=== PATIENT | female | born 1945 | race Caucasian/White ===

== ENCOUNTER 2018-03-29 03:16 | Emergency (ER) | payer OTHER ==
--- NOTE | 2018-03-29 03:26 | EDPHY ---
H & P Time Seen by Provider: 03/29/18 03:24 HPI/ROS: 72 yo F presents c/o having crampy stomach pain, queasy all weekend with some diarrhea that began yesterday , and she has noticed blood in the diarrhea, possibly some blood clots. No prior hx of GI bleeding. She believes she may have been told she has diverticuli on colonoscopy. Review of systems As per HPI General no fever no chills no weakness, positive fatigue HEENT no eye pain no eye discharge. No eye redness, no sore throat Respiratory no cough, no shortness of breath Cardiac no chest pain, no peripheral edema GI no abdominal pain, positive diarrhea, no constipation, positive nausea, no vomiting, positive bright red blood per rectum no flank pain, no hematuria, no dysuria Musculoskeletal no myalgias, no joint pain Heme no easy bruising, no easy bleeding Endo no polyuria, no polydipsia Skin no rashes, no pruritus Neuro no syncope, no dizziness, no headaches Psych is no suicidal ideation, no homicidal ideation Source: Patient Exam Limitations: No limitations - Personal History Current Tetanus Diphtheria and Acellular Pertussis (TDAP): Yes - Medical/Surgical History Hx Asthma: No Hx Chronic Respiratory Disease: No Hx Diabetes: Yes Hx Cardiac Disease: Yes Hx Renal Disease: No Hx Cirrhosis: No Hx Alcoholism: No Hx HIV/AIDS: No Hx Splenectomy or Spleen Trauma: No Other PMH: hypertension, hyperlipidemia, hysterectomy, hyppothyroidism - Family History Significant Family History: No pertinent family hx - Social History Smoking Status: Unknown if ever smoked Alcohol Use: None Drug Use: None - Physical Exam Exam: 72 yo F alert and oriented in nad non toxic appearance HEENT atraumatic normocephalic, extraocular muscles intact, anicteric Oropharynx negative for erythema negative exudate, tolerating her own secretions Neck supple no meningismus Lungs clear to auscultation bilaterally Heart regular rate and rhythm without murmur rub or gallop Abdomen nondistended normoactive bowel sounds soft nontender rectal exam -one small flesh colored external hemmrhoid- not actively bleeding positive bloody appearing stool and mucous in rectal vault sent for hemocult check Back no CVA tenderness, no step-offs, no spinal tenderness Extremities no cyanosis clubbing or edema Neuro alert and oriented, no focal deficits Constitutional: Initial Vital Signs Temperature (C) 37.0 C 07/10/18 03:20 Heart Rate 80 03/29/18 03:20 Respiratory Rate 16 03/29/18 03:20 Blood Pressure 187/96 H 03/29/18 03:20 O2 Sat (%) 93 03/29/18 03:20 O2 Delivery Mode Room Air Allergies/Adverse Reactions: meperidine [Meperidine] Allergy (Severe, Verified 03/29/18 03:30) Unknown prochlorperazine edisylate [From Compazine] Allergy (Severe, Verified 03/29/18 03:30) Unknown prochlorperazine maleate [From Compazine] Allergy (Severe, Verified 03/29/18 03: 30) Unknown Home Medications: Medication Instructions Recorded Aleve 03/29/18 Amoxicillin/Clavulanate Pot 875 mg PO BID #20 tab 03/29/18 [Augmentin 875 MG TAB (*)] Atorvastatin Calcium 03/29/18 Biotin 03/29/18 Levothyroxine 03/29/18 Lisinopril 03/29/18 Metoprolol Tartrate 03/29/18 Medical Decision Making ED Course/Re-evaluation: Pt seen adn evaluated for abdominal pain, diarrhea and blood per rectum IV established IV normal saline 1 liter given labs CBC wnl CMP wnl Lactate 1.5 fecal occult blood positive lipase wnl pt/ptt wnl type and screen ct abd and pelvis-mild diverticulitis, diverticulosis hepatic cyst 12 cm pt given a second liter normal saline Imp Diverticulitis Plan Home on Augmentin 875 BID x 10 d f/u with 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 Return as needed Differential Diagnosis: Differential diagnosis considered but not limited to: Infectious diarrhea, rectal bleeding, hemorrhoid, anal fissure, diverticulosis, lower gastrointestinal bleeding, diverticulitis, gastroenteritis - Data Points Medications Given: Discontinued Medications Amoxicillin/Clavulanate Potassium (Augmentin 875mg) 875 mg PO EDNOW ONE PRN Reason: Protocol Stop: 03/29/18 05:32 Last Admin: 03/29/18 05:43 Dose: 875 mg Sodium Chloride (Ns) 1,000 mls @ 0 mls/hr IV ONCE ONE PRN Reason: Wide Open Stop: 03/29/18 03:46 Last Admin: 03/29/18 04:05 Dose: 1,000 mls Sodium Chloride (Ns) 1,000 mls @ 0 mls/hr IV EDNOW ONE; Wide Open PRN Reason: Protocol Stop: 03/29/18 05:13 Last Admin: 03/29/18 05:22 Dose: 1,000 mls Ondansetron HCl (Zofran) 4 mg IVP EDNOW ONE Stop: 03/29/18 03:47 Last Admin: 03/29/18 04:04 Dose: 4 mg Point of Care Test Results: CBC CBC Collection Date 03/29/18 CBC Collection Time 03:55 WBC 6.3 RBC 5.11 HGB 16.1 HCT 48.8 PLT 186 Neut # 4.0 Neut 63.9 LYMPH # 1.7 LYMPH 27.3 Other WBC # 0.6 Other WBC 8.8 MCV 95.5 Chemistry 03/29/18 04:14 POC Sodium 142 mEq/L mEq/L (135-145) POC Potassium 4.1 mEq/L mEq/L (3.3-5.0) POC Chloride 104.0 mEq/L mEq/L (97-110) POC Total CO2 26 mEq/L mEq/L (22-31) POC BUN 13 mg/dL mg/dL (7-23) POC Creatinine 1.2 mg/dL H mg/dL (0.6-1.0) POC Glucose 108 mg/dL H mg/dL (70-100) POC Calcium 9.6 mg/dL mg/dL (8.5-10.4) POC Total Bilirubin 0.7 mg/dL mg/dL (0.1-1.4) POC AST 33 IU/L IU/L (14-46) POC ALT 18 IU/L IU/L (9-52) POC Alk Phosphatase 111 IU/L IU/L (38-126) POC Total Protein 7.0 g/dL g/dL (6.3-8.2) POC Albumin 3.4 g/dL L g/dL (3.5-5.0) Blood Gas/Lactic Acid-Venous 03/29/18 04:15 POC Lactic Acid Hernando 1.5 mmol/L mmol/L (0.7-2.1) Occult Blood Occult Blood Collection Date 03/29/18 Occult Blood Collection Time 03:35 Occult Blood Result Positive/Positive Departure - Departure Disposition: Home, Routine, Self-Care Clinical Impression: Diverticula of colon, Diverticulitis large intestine w/o perforation or abscess w/bleeding Condition: Good Instructions: Diverticulitis (ED), Rectal Bleeding (ED), Diverticulosis (ED) Referrals: Patient,NotPresent [Unknown] - As per Instructions Prescriptions: Amoxicillin/Clavulanate Pot [Augmentin 875 MG TAB (*)] 875 mg PO BID #20 tab
[2018-03-29] MEDS ORDERED: NS 1,000 ML IV ONE ×2 (03:45→05:12)
[2018-03-29] MEDS ORDERED: ONDANSETRON 4 MG/2 ML VIAL IVP ONE (03:46)
[2018-03-29] MEDS ORDERED: IOPAMIDOL (ISOVUE-300) 100 ML BTL ONE (04:42)
[2018-03-29 04:59] LABS: INR 1.01 (0.83-1.16); PROTIME(PATIENT) 13.5 SEC (12.0-15.0)
[2018-03-29] MEDS ORDERED: AMOXICILLIN/CLAVULANATE POT 875/125 MG TAB PO ONE (05:31)
[2018-03-29 06:06] VITALS: BP 172/91
== END 2018-03-29 06:05 | disposition home or self-care (01) ==
LOC: CED 03:16
DX: K57.32 Diverticulitis of large intestine without perforation or abscess without bleeding (principal); I10 Essential (primary) hypertension; E11.9 Type 2 diabetes mellitus without complications; E86.9 Volume depletion, unspecified
CPT/HCPCS: 74177; 96361; 96374; 99285; J2405; Q9967; 80053-PO; 83605-PO

== ENCOUNTER 2018-04-03 06:08 | Emergency (ER) | payer OTHER ==
[2018-04-03] MEDS ORDERED: DIAZEPAM 10 MG/2 ML SYR IVP ONE (06:45)
[2018-04-03] MEDS ORDERED: ONDANSETRON 4 MG/2 ML VIAL IVP ONE (06:45)
--- NOTE | 2018-04-03 06:48 | CPEKG ---
Heart Rate: 86 RR Interval: 698 P-R Interval: 176 QRSD Interval: 98 QT Interval: 364 QTC Interval: 436 P Homer: 40 QRS Homer: -29 T Wave Homer: 81 EKG Severity - ABNORMAL ECG - EKG Impression: SINUS RHYTHM EKG Impression: LVH WITH SECONDARY REPOLARIZATION ABNORMALITY Electronically Signed By: Ynes Pepe 03-Apr-2018 07:15:21
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
[2018-04-03] MEDS ORDERED: ACETAMINOPHEN 500 MG TAB PO ONE (08:00)
[2018-04-03] MEDS ORDERED: LIDOCAINE 4%/MENTHOL 1% PATCH TD ONE (08:01)
[2018-04-03 09:18] VITALS: BP 154/76
[2018-04-03] MEDS ORDERED: PATCH REMOVAL 1 EA PATCH TD SCH (21:00)
== END 2018-04-03 09:16 | disposition home or self-care (01) ==
LOC: CED 06:08
DX: M19.011 Primary osteoarthritis, right shoulder (principal); M62.838 Other muscle spasm; M54.2 Cervicalgia; I10 Essential (primary) hypertension; E11.9 Type 2 diabetes mellitus without complications
CPT/HCPCS: 72125; 73030; 93005; 96374; 96375; 99285; J2270; J2405; J3360

== ENCOUNTER 2018-05-17 02:08 | Observation (INO) | payer OTHER ==
[2018-05-17] MEDS: NS 1,000 ML IV ONE ×3 (02:33→04:23)
[2018-05-17] MEDS ORDERED: ONDANSETRON 4 MG/2 ML VIAL IVP ONE (02:34)
--- NOTE | 2018-05-17 02:46 | EDPHY ---
H & P Stated Complaint: diarrhea and abdominal pain Time Seen by Provider: 05/17/18 02:16 HPI/ROS: CHIEF COMPLAINT: Diarrhea with nausea and vomiting for 30 hrs HISTORY OF PRESENT ILLNESS: Medically stable 72-year-old female with chronic hypertension hypothyroidism. Prior hx of hysterectomy. Has had diverticulitis however. She was exposed to the great granddaughter who was ill last week. Evidently in reach tracing the steps her own daughter was sick yesterday evening as well as the onset of her own symptoms at 10:30 p.m. Yesterday. However, the daughter seems to be doing better than she. Nonetheless she was resting on the couch at around 10:30 a.m.. Had not gone to sleep yet as that is her custom and started with a sense of urgent need for the commode due to diarrhea. She had asleep on the couch due to the proximity to the bathroom as she was going every 15-30 minutes. The diarrhea has been liquid brown without any blood or green or black discoloration. There has also been emesis. The last emesis was just prior to admission however the emesis through the wee hours of the morning last night and ended around 3 or [address] However, though she was able to take fluids the day during the daylight hours, it really made her have a sense of need to have diarrhea so she really did take much fluid intake at all. Of note, she reports that she is still making urine without dysuria, frequency or hematuria. From the very beginning there is also some mild abdominal pain which used chiefly in the suprapubic region. Bilateral lower quadrants. Does not radiate. It is mild. Achy like sensation. She is unable to distinguish if it is similar to what she has had before when she has had diverticulitis. She takes Aleve 3 times weekly for the arthritis pain and has not had it for 2- 3 days. She was too ill through the day on the to take her anti- hypertensive medicines Travel: None Others: Several days ago the 2-1/2-year-old granddaughter was ill with diarrhea. Where as the patient became ill yesterday evening, her daughter became ill yesterday afternoon. The daughter is doing quite a bit better today and isn't as ill as are patient is today. Antibiotics: Augmentin in March for diverticulitis. Bad Food: None Bad Water: None Recent Surgery: None REVIEW OF SYSTEMS: Constitutional: Has felt chilled but did not take her own temp. Feels faint when up, needing someone to hold on to. Eyes: No discharge ENT: No sore throat. Does report thirst. Cardiovascular: No chest pain, no palpitations. Respiratory: No cough, shortness of breath, or wheezing. Gastrointestinal: See above Genitourinary: No hematuria or frequency. Musculoskeletal: There is some pain in the left shoulder blade area, worse with movement. Skin: No rashes. Neurological: No headache. 10 point ROS otherwise negative Source: Patient Exam Limitations: No limitations - Medical/Surgical History Hx Asthma: No Hx Chronic Respiratory Disease: No Hx Diabetes: No Hx Cardiac Disease: Yes Hx Renal Disease: No Hx Cirrhosis: No Hx Alcoholism: No Hx HIV/AIDS: No Hx Splenectomy or Spleen Trauma: No Other PMH: hypertension, hyperlipidemia, hysterectomy, hyppothyroidism, diverticulitis - Social History Smoking Status: Never smoked Alcohol Use: None Drug Use: None - Physical Exam Exam: General Appearance: Alert, no distress. Temp is borderline at 37.4, though feels warm to the touch. Normal phonation. No respiratory distress. Eyes: Pupils equal and round no pallor or injection. No icterus ENT, Mouth: Mucous membranes moderately dry Pharynx without erythema or exudate. TM Clear. Neck: No adenopathy. Supple. No JVD. Trachea in midline. Respiratory: There are no retractions, lungs are clear to auscultation. Chest wall: Nontender to palpation. No crepitus. Cardiovascular: Regular rate and rhythm. Abdomen: Faint BS heard, no distention. Mild upper abdominal tenderness with moderate lower abdominal tenderness in both R and L lower quadrants. Soft and nontender, no masses, bowel sounds normal. Neurological: Ox3. No motor weakness. Sensation intact. Gait nl. Skin: Warm and dry, no rashes. Musculoskeletal: No joint swelling. Warm feet. Extremities: No edema. Homans sign negative. No cords. Psychiatric: Normal affect. Patient is oriented X 3. There is no agitation Constitutional: Initial Vital Signs Temperature (C) 37.4 C 05/17/18 02:15 Heart Rate 104 H 05/17/18 02:15 Respiratory Rate 18 05/17/18 02:15 Blood Pressure 165/91 H 05/17/18 02:15 O2 Sat (%) 94 05/17/18 02:15 O2 Delivery Mode Nasal Cannula O2 (L/minute) 2 Allergies/Adverse Reactions: meperidine [Meperidine] Allergy (Verified 05/17/18 02:14) makes me throw up prochlorperazine edisylate [From Compazine] Allergy (Verified 05/17/18 02:14) with 1st - affected eyelids and muscles prochlorperazine maleate [From Compazine] Allergy (Verified 05/17/18 02:14) with 1st - affected eyelids and muscles Home Medications: Medication Instructions Recorded Atorvastatin Calcium [Lipitor 40 40 mg PO HS 03/29/18 mg (*)] Levothyroxine [Synthroid 50 mcg 50 mcg PO DAILY06 03/29/18 (*)] Lisinopril [Zestril 10 mg (*)] 10 mg PO DAILY 03/29/18 Metoprolol Tartrate [Lopressor 25 25 mg PO BID 03/29/18 mg (*)] Naproxen Sodium [Aleve 220 MG (*)] 220 mg PO BID PRN 03/29/18 Famotidine [Pepcid 20 MG (*)] 20 mg PO BID PRN 05/04/18 Albuterol [Proventil Inhaler HFA 1 - 2 puffs IH DAILY PRN 05/17/18 (*)] Medical Decision Making - Diagnostics EKG Interpretation: EKG interpretation. This is normal sinus rhythm. Heart rate 92. Right bundle branch block. No ischemic changes. Imaging Results: Imaging Impressions Abdomen/Pelvis CT 05/17/18 03:30 Impression: 1. Minimal sigmoid diverticulitis (minimal increased stranding since 6 weeks prior). 2. New gallbladder wall thickening. No cholelithiasis or biliary dilation. The study was performed as an emergency on-call case and discussed by telephone with Dr. Desai at 4:00 a.m. The final interpretation is concordant with the original communication. Attention: This CT examination is specifically designed to evaluate patients who are clinically suspected of having acute obstructive uropathy. This examination does not use radiographic contrast, and as such, provides only a limited evaluation of the abdomen, pelvis and retroperitoneum. If there is further clinical suspicion for pathological conditions other than obstructive uropathy, a complete CT evaluation of the abdomen and pelvis utilizing intravenous, oral, and rectal contrast should be considered. CT scan of Abdomen & Pelvis. Performed [without] IV contrast. Interpreted by radiologist. Films reviewed by me. Findings as follows: Gallbladder wall edema without inflammation nor stone. Some inflammation of the rectosigmoid much as the past CT in March. There is also some mesenteric edema that was not seen in the past. Imaging: Discussed imaging studies w/ call center team leader Radiologist ED Course/Re-evaluation: Concern on on initial analysis was for dehydration, most likely in the setting of a viral enteritis. However she does have abdominal tenderness thus will consider checking liver functions, lipase as well as CT scan of the abdomen. Due to the suprapubic tenderness will need a cath urine for quality of specimen as well as to measure urine output. Given her age and history of events is certainly possible that she is has a very low urine output, thereby guiding fluid therapy. Old charts were reviewed: Her baseline creatinine in December as an outpatient was 0.9. Of note is that it was 1.2 at point of care testing here when she was not seen on March 29 for diverticulitis. That scan scan would done with IV contrast but though given her marked dehydration at this point will go without. Laboratory findings: Urine dip here who flexed market dehydration with 2+ ketones and a specific gravity 1.030. No signs of infectious elements. Lactic acid normal 1.8 Electrolytes normal LFTs normal Troponin normal HGB up 1 gm since 2015 EKG shows right bundle branch Block without ischemia. CT with question of possible diverticulitis After CT: UO over one hour essentially minimal. Espinosa d/c'd as enough info has been gained at this point. No stool as of yet Repeat Abd Exam: Nontender upper abd, mild tender LLQ > RLQ. No R or G. Given extent of dehydration will recommend admission, agrees with need for ambulance transfer. Case discussed with Dr. Carrillo of the [facility] service at [facility] accepting the patient. Findings on CT unclear if from severe viral GE Colitis vs C. Diff vs Diverticulitis acutely. Will not start antibiotics at this point as evaluation is still unclear. Differential Diagnosis: Differential diagnosis includes, but is not limited to: Gastroenteritis, dehydration, diverticulitis, cholecystitis, gastritis, mesenteric adenitis, food poisoning, bacterial dysentery, C. Diff. - Data Points Laboratory Results: Laboratory Results 05/17/18 02:30 Medications Given: Discontinued Medications Enoxaparin Sodium (Lovenox) 40 mg SC DAILY CAROLINE Stop: 11/13/18 08:59 Last Admin: 05/17/18 08:16 Dose: 40 mg Sodium Chloride (Ns) 1,000 mls @ 500 mls/hr IV EDNOW ONE PRN Reason: Protocol Stop: 05/17/18 04:30 Last Admin: 05/17/18 04:23 Dose: 1,000 mls Sodium Chloride (Ns) 1,000 mls @ 500 mls/hr IV EDNOW ONE PRN Reason: Protocol Stop: 05/17/18 06:03 Last Admin: 05/17/18 04:24 Dose: Not Given Sodium Chloride (Ns) 1,000 mls @ 100 mls/hr IV CONT CAROLINE Stop: 11/13/18 06:59 Last Admin: 05/17/18 08:17 Dose: 1,000 mls Ondansetron HCl (Zofran) 4 mg IVP EDNOW ONE Stop: 05/17/18 02:35 Last Admin: 05/17/18 02:48 Dose: 4 mg Point of Care Test Results: Chemistry 05/17/18 05/17/18 02:38 02:38 POC Sodium 140 mEq/L mEq/L (135-145) POC Potassium 3.9 mEq/L mEq/L (3.3-5.0) POC Chloride 105.0 mEq/L mEq/L (97-110) POC Total CO2 21 mEq/L L mEq/L (22-31) POC BUN 12 mg/dL mg/dL (7-23) POC Creatinine 1.1 mg/dL H mg/dL (0.6-1.0) POC Glucose 147 mg/dL H mg/dL (70-100) POC Calcium 9.2 mg/dL mg/dL (8.5-10.4) POC Total Bilirubin 1.0 mg/dL mg/dL (0.1-1.4) POC AST 30 IU/L IU/L (14-46) POC ALT 22 IU/L IU/L (9-52) POC Alk Phosphatase 93 IU/L IU/L (38-126) POC Troponin I 0.00 ng/mL ng/mL (0.00-0.08) POC Total Protein 6.9 g/dL g/dL (6.3-8.2) POC Albumin 3.7 g/dL g/dL (3.5-5.0) Blood Gas/Lactic Acid-Venous 05/17/18 02:56 POC Lactic Acid Hernando 1.8 mmol/L mmol/L (0.7-2.1) Urine Dip Collection Date 05/17/18 Collection Time 03:25 Specific [place] (1.002-1.030) 1.030 PH (5.0-7.5) 5.5 Leukocytes (Negative) Negative Nitrites (Negative) Negative Protein (Negative) 1+ Glucose (Negative) Negative Ketones (Negative) 2+ Urobilnogen (0.2-1.0 EU) 2.0 Bilirubin (Negative) Negative Blood (Negative) Trace Departure - Departure Disposition: [facility] Inpatient Acute Clinical Impression: Gastroenteritis and colitis, viral, Dehydration, severe, Acute kidney injury Condition: Good
[2018-05-17 03:19] LABS: PLATELET COUNT 183 10^3/uL (150-400)
[2018-05-17] MEDS ORDERED: NS 1,000 ML IV ONE (04:04)
--- NOTE | 2018-05-17 05:03 | CPEKG ---
Test Reason : OPEN Blood Pressure : / mmHG Vent. Rate : 092 BPM Atrial Rate : 093 BPM P-R Int : 195 ms QRS Dur : 147 ms QT Int : 388 ms P-R-T Axes : 017 -13 -16 degrees QTc Int : 481 ms Sinus rhythm Right bundle branch block Confirmed by Cristi Desai ([id number]) on 05/17/2018 5:03:07 AM Referred By: Confirmed By:Cristi Desai
[2018-05-17] MEDS ORDERED: ACETAMINOPHEN 325 MG TAB PO PRN (06:34)
[2018-05-17] MEDS ORDERED: ONDANSETRON 4 MG/2 ML VIAL IVP PRN (06:34)
[2018-05-17] MEDS ORDERED: ONDANSETRON DISINTEGRATING 4 MG TAB PO PRN (06:34)
[2018-05-17] MEDS ORDERED: CALCIUM CARBONATE 500 MG CHEWABLE TAB PO PRN (06:46)
[2018-05-17] MEDS ORDERED: PROMETHAZINE HCL 25 MG/ML INJ IVP PRN (06:46)
--- NOTE | 2018-05-17 06:55 | PDGENHP ---
History and Physical - Chief Complaint Vomiting, diarrhea - History of Present Illness 72 yo F w/ hx of HTN and PVCs presents with nausea, vomiting, and diarrhea. Patient has been having these symptoms for about 2 days. Her great granddaughter has had similar symptoms this week. Of note, she had a bout of diverticulitis one month ago treated with 10 days of Augmentin therapy. She denies similar pain currently to the symptoms surrounding that episode. Currently she feels weak and fatigued. Work-up in ED revealed mild BRIAN. She is being admitted for hydration and observation. Case discussed with ED physician Dr. Desai, records reviewed in EMR. History Information - Allergies/Home Medication List Allergies/Adverse Reactions: meperidine [Meperidine] Allergy (Verified 05/17/18 02:14) makes me throw up prochlorperazine edisylate [From Compazine] Allergy (Verified 05/17/18 02:14) with 1st - affected eyelids and muscles prochlorperazine maleate [From Compazine] Allergy (Verified 05/17/18 02:14) with 1st - affected eyelids and muscles Home Medications: Aleve 03/29/18 [Last Taken Unknown] Atorvastatin Calcium 03/29/18 [Last Taken Unknown] Levothyroxine 03/29/18 [Last Taken Unknown] Lisinopril 03/29/18 [Last Taken Unknown] Metoprolol Tartrate 03/29/18 [Last Taken Unknown] Herbals/Supplements -Info Only 05/04/18 [Last Taken Unknown] Pepcid AC 05/04/18 [Last Taken Unknown] I have personally reviewed and updated: family history, medical history - Past Medical History hypertension Additional medical history: Hypothyroid. PVCs - Surgical History Additional surgical history: R TKA. Neck surgery - Family History Positive for: cancer - Social History Smoking Status: Never smoked Alcohol Use: None Drug Use: None Review of Systems Review of Systems: ROS: 10pt was reviewed & negative except for what was stated in HPI & below Physical Exam Physical Exam: Temp Pulse Resp BP Pulse Ox 36.9 C 79 16 161/81 H 98 05/17/18 06:28 05/17/18 06:28 05/17/18 06:28 05/17/18 06:28 05/17/18 06:28 O2 (L/minute) 3 Constitutional: appears nourished, not in pain Eyes: PERRL, EOMI Ears, Nose, Mouth, Throat: moist mucous membranes, no oral mucosal ulcers Cardiovascular: regular rate and rhythym, no murmur, rub, or gallop Respiratory: no respiratory distress, clear to auscultation Gastrointestinal: normoactive bowel sounds, tenderness (LLQ), No guarding, No rebound, No distension Skin: warm, normal color Musculoskeletal: full muscle strength, no muscle tenderness Neurologic: AAOx3, CN II-XII Intact Psychiatric: interacting appropriately, not anxious Lab Data & Imaging Review 05/17/18 02:30 WBC 6.03 10^3/uL (3.80-9.50) 05/17/18 02:30 RBC 5.05 10^6/uL (4.18-5.33) 05/17/18 02:30 Hgb 16.1 g/dL (12.6-16.3) 05/17/18 02:30 Hct 47.4 % (38.0-47.0) H 05/17/18 02:30 MCV 93.9 fL (81.5-99.8) 05/17/18 02:30 MCH 31.9 pg (27.9-34.1) 05/17/18 02:30 MCHC 34.0 g/dL (32.4-36.7) 05/17/18 02:30 RDW 14.0 % (11.5-15.2) 05/17/18 02:30 Plt Count 183 10^3/uL (150-400) 05/17/18 02:30 MPV 9.8 fL (8.7-11.7) 05/17/18 02:30 Neut % (Auto) 80.6 % (39.3-74.2) H 05/17/18 02:30 Lymph % (Auto) 12.8 % (15.0-45.0) L 05/17/18 02:30 Douglas % (Auto) 6.1 % (4.5-13.0) 05/17/18 02:30 Eos % (Auto) 0.0 % (0.6-7.6) L 05/17/18 02:30 Baso % (Auto) 0.2 % (0.3-1.7) L 05/17/18 02:30 Nucleat RBC Rel Count 0.0 % (0.0-0.2) 05/17/18 02:30 Absolute Neuts (auto) 4.86 10^3/uL (1.70-6.50) 05/17/18 02:30 Absolute Lymphs (auto) 0.77 10^3/uL (1.00-3.00) L 05/17/18 02:30 Absolute Monos (auto) 0.37 10^3/uL (0.30-0.80) 05/17/18 02:30 Absolute Eos (auto) 0.00 10^3/uL (0.03-0.40) L 05/17/18 02:30 Absolute Basos (auto) 0.01 10^3/uL (0.02-0.10) L 05/17/18 02:30 Absolute Nucleated RBC 0.00 10^3/uL (0-0.01) 05/17/18 02:30 Immature Gran % 0.3 % (0.0-1.1) 05/17/18 02:30 Immature Gran # 0.02 10^3/uL (0.00-0.10) 05/17/18 02:30 POC Sodium 140 mEq/L (135-145) 05/17/18 02:38 POC Potassium 3.9 mEq/L (3.3-5.0) 05/17/18 02:38 POC Chloride 105.0 mEq/L (97-110) 05/17/18 02:38 POC Total CO2 21 mEq/L (22-31) L 05/17/18 02:38 POC BUN 12 mg/dL (7-23) 05/17/18 02:38 POC Creatinine 1.1 mg/dL (0.6-1.0) H 05/17/18 02:38 POC Glucose 147 mg/dL (70-100) H 05/17/18 02:38 POC Lactic Acid Hernando 1.8 mmol/L (0.7-2.1) 05/17/18 02:56 POC Calcium 9.2 mg/dL (8.5-10.4) 05/17/18 02:38 POC Total Bilirubin 1.0 mg/dL (0.1-1.4) 05/17/18 02:38 POC AST 30 IU/L (14-46) 05/17/18 02:38 POC ALT 22 IU/L (9-52) 05/17/18 02:38 POC Alk Phosphatase 93 IU/L (38-126) 05/17/18 02:38 POC Troponin I 0.00 ng/mL (0.00-0.08) 05/17/18 02:38 POC Total Protein 6.9 g/dL (6.3-8.2) 05/17/18 02:38 POC Albumin 3.7 g/dL (3.5-5.0) 05/17/18 02:38 Lipase 79 IU/L (23-300) 05/17/18 02:30 Imaging Review: prelim CT AP 1. Mild diverticulitis in low sigmoid. Min incr stranding since 6 wks prior. No FF or abscess. 2. New Gallbladder wall thickening/edema. No surrounding stranding d/w Dr Desai at 4:00 am Assessment & Plan Assessment: 72 yo F w HTN presents with likely viral gastroenteritis. Plan: 1. Gastroenteritis - Presenting with 2 days of nausea, vomiting, and diarrhea. She did have course of antibiotics one month ago so C. Diff will need to be rule out. - Clear liquids, ADAT - mIVF, anti-emetics - GI PCR ordered 2. Hx of diverticulitis - CT scan again reveals mild diverticulitis. Patient has normal WBC and denies symptoms. She was treated for a bout of this about 1 month ago with 10 day course of Augmentin. Mild LLQ TTP on exam. - Serial abdominal exams - Observe off of antibiotics for now 3. HTN - Needs med reconciliation, on lisinopril as outpatient 4. Hypothyroid - On LTX 5. PVCs - On metoprolol Diet - Clears, ADAT Code - Full Ppx - LMWH Dispo - Admit under observation status
[2018-05-17] MEDS ORDERED: NS 1,000 ML IV SCH (07:00)
[2018-05-17] MEDS ORDERED: ENOXAPARIN 40 MG/0.4 ML SYR SC SCH (09:00)
[2018-05-17] MEDS ORDERED: FAMOTIDINE 20 MG TAB PO PRN (13:40)
[2018-05-17 14:59] VITALS: BP 147/95
--- NOTE | 2018-05-17 15:17 | ASMTLACE ---
LACE Length of stay for Answers: Less than 1 day current admission Acuity / Level of Answers: No Care: Did the patient have an inpatient admission? Comorbidities - select Answers: Other Notes: HTN; Hypothyroid; PVCs all that apply # of Emergency department Answers: 3-4 visits in the last 6 months Score: 4 Date Signed: 05/17/2018 03:16 PM Electronically Signed By:Sherly Grimes
[2018-05-17] MEDS ORDERED: METOPROLOL TARTRATE 25 MG TAB PO SCH (21:00)
[2018-05-17] MEDS ORDERED: ATORVASTATIN CALCIUM 40 MG TAB PO SCH (21:00)
[2018-05-18] MEDS ORDERED: LEVOTHYROXINE 50 MCG TAB PO SCH (06:00)
== END 2018-05-17 17:16 | disposition home or self-care (01) ==
LOC: CED 02:08 → CEDHOLD 04:32 → F1N 06:26
PROVIDERS: ADMIT Student in an Organized Health Care Education/Training Program; ATTEND Student in an Organized Health Care Education/Training Program
DX: K52.9 Noninfective gastroenteritis and colitis, unspecified (principal); E86.0 Dehydration; K57.32 Diverticulitis of large intestine without perforation or abscess without bleeding; I10 Essential (primary) hypertension; E03.9 Hypothyroidism, unspecified; E78.5 Hyperlipidemia, unspecified; Z90.710 Acquired absence of both cervix and uterus
CPT/HCPCS: 74176; 93005; G0378; J1650; 80053-PO; 83605-PO; 84484-PO

== ENCOUNTER 2018-05-27 05:34 | Observation (INO) | payer OTHER ==
[2018-05-27] MEDS ORDERED: LR 1,000 ML IV ONE (06:06)
[2018-05-27] MEDS ORDERED: MIDAZOLAM 2 MG/2 ML VIAL IVP ONE (06:59)
--- NOTE | 2018-05-27 06:59 | PDANEPAE ---
ANE History of Present Illness here for L ankle fusion ANE Past Medical History - Cardiovascular History Hx Hypertension: Yes Hx Arrhythmias: Yes Hx Chest Pain: No Hx Coronary Artery / Peripheral Vascular Disease: Yes Hx CHF / Valvular Disease: No Hx Palpitations: No Cardiovascular History Comment: hx of tachycardia with failed cardiac ablation 2010. hx of pvc's. hx of palpitations. cad. hyperlipidemia. followed by [facility] - Pulmonary History Hx COPD: No Hx Asthma/Reactive Airway Disease: Yes Hx Recent Upper Respiratory Infection: No Hx Oxygen in Use at Home: No Hx Sleep Apnea: No Sleep Apnea Screening Result - Last Documented: Positive Pulmonary History Comment: bulmaro triggers. hx of asthma- well controlled uses inhaler very seldom - Neurologic History Hx Cerebrovascular Accident: No Hx Seizures: No Hx Dementia: No - Endocrine History Hx Diabetes: No Endocrine History Comment: hypothyroidism. nodules on thyroid- monitoring currently - Renal History Hx Renal Disorders: Yes Renal History Comment: bladder prolapse- pessary in place - Liver History Hx Hepatic Disorders: No - Neurological & Psychiatric Hx Hx Neurological and Psychiatric Disorders: No - Cancer History Hx Cancer: Yes Cancer History Comment: skin ca - Congenital Disorder History Hx Congenital Disorders: No - GI History Hx Gastrointestinal Disorders: Yes Gastrointestinal History Comment: reflux. hx of dysphagia 2014. egd 2 weeks ago. went to ER 03/2018- diarrhea and bleeding, dx'd with diverticulitis and abx - Other Health History Other Health History: wears glasses - Chronic Pain History Chronic Pain: No - Surgical History Prior Surgeries: right TKA 2013. neck fusion. left ankle repair with hardware placed. bilateral RTC repairs. cardiac ablation- unsuccessful ANE Review of Systems Review of systems is: negative Review of Systems: - Exercise capacity Exercise capacity: >=4 METS METS (RN): 4 METS ANE Patient History - Allergies Allergies/Adverse Reactions: meperidine [Meperidine] Allergy (Verified 05/27/18 06:07) makes me throw up prochlorperazine edisylate [From Compazine] Allergy (Verified 05/27/18 06:07) with 1st - affected eyelids and muscles prochlorperazine maleate [From Compazine] Allergy (Verified 05/27/18 06:07) with 1st - affected eyelids and muscles - Home Medications Home medications: home medication list seen and reviewed Home Medications: Atorvastatin Calcium [Lipitor 40 mg (*)] 40 mg PO HS 03/29/18 [Last Taken ] Levothyroxine [Synthroid 50 mcg (*)] 50 mcg PO DAILY06 03/29/18 [Last Taken 03/07] Lisinopril [Zestril 10 mg (*)] 10 mg PO DAILY 03/29/18 [Last Taken 05/26/18] Metoprolol Tartrate [Lopressor 25 mg (*)] 25 mg PO BID 03/29/18 [Last Taken 03/07] Naproxen Sodium [Aleve 220 MG (*)] 220 mg PO BID PRN 03/29/18 [Last Taken ] Famotidine [Pepcid 20 MG (*)] 20 mg PO BID PRN 05/04/18 [Last Taken 05/26/18] Albuterol [Proventil Inhaler HFA (*)] 1 - 2 puffs IH DAILY PRN 05/17/18 [Last Taken 04/27/18] - NPO status NPO Status: no food or drink >8 hours NPO Since - Liquids (Date): 05/26/18 NPO Since - Liquids (Time): 21:00 NPO Since - Solids (Date): 05/26/18 NPO Since - Solids (Time): 17:30 - Smoking Hx Smoking Status: Never smoked - Family Anes Hx Family Hx Anesthesia Complications: none ANE Labs/Vital Signs - Vital Signs Vital Signs: reviewed preoperatively; see RN documention for details Blood Pressure: 152/71 Heart Rate: 72 Respiratory Rate: 16 O2 Sat (%): 93 Height: 160.02 cm Weight: 92.986 kg ANE Physical Exam - Airway Neck exam: FROM Mallampati Score: Class 1 - Pulmonary Pulmonary: no respiratory distress - Cardiovascular Cardiovascular: regular rate and rhythym - ASA Status ASA Status: II ANE Anesthesia Plan Anesthesia Plan: GA w LMA Regional Anesthesia: continuous NB
[2018-05-27] MEDS ORDERED: ceFAZolin 2 GM/DEXTROSE 100 ML IV ONE (07:04)
--- NOTE | 2018-05-27 07:04 | PDHPUP ---
History & Physical Update H&P update statement: This history and physical update is based on an assessment of the patient which was completed after admission or registration (within 24 hours), but prior to the surgery/procedure. H&P update: H&P reviewed & patient examined, no change in patient's condition since H&P completed
[2018-05-27] MEDS ORDERED: MIDAZOLAM 2 MG/2 ML VIAL ONE (07:05)
[2018-05-27] MEDS ORDERED: fentaNYL 100 MCG/2 ML INJ ONE ×2 (07:05→08:35)
[2018-05-27] MEDS ORDERED: CEFAZOLIN 2 GM/DEXTROSE/100 ML BAG IV ONE (07:07)
[2018-05-27] MEDS ORDERED: PROPOFOL 200 MG/20 ML VIAL ONE ×2 (07:38→08:26)
[2018-05-27] MEDS ORDERED: DEXAMETHASONE 4 MG/ML VIAL ONE (07:46)
[2018-05-27] MEDS ORDERED: ONDANSETRON 4 MG/2 ML VIAL ONE (07:46)
[2018-05-27] MEDS ORDERED: NALOXONE HCL 0.4 MG/ML INJ IVP PRN (08:13)
[2018-05-27] MEDS ORDERED: HYDROCODONE/APAP 5/325 TAB PO PRN (08:13)
[2018-05-27] MEDS ORDERED: DEXAMETHASONE 4 MG/ML VIAL IVP PRN (08:13)
[2018-05-27] MEDS ORDERED: fentaNYL 100 MCG/2 ML INJ IVP PRN (08:13)
[2018-05-27] MEDS ORDERED: ONDANSETRON 4 MG/2 ML VIAL IVP PRN ×2 (08:13→09:24)
[2018-05-27] MEDS ORDERED: HYDROmorphONE/DILAUDID 1 MG/ML INJ IVP PRN ×2 (08:13→09:24)
[2018-05-27] MEDS ORDERED: NS 500 ML IV PRN (08:13)
[2018-05-27] MEDS ORDERED: oxyCODONE IR 5 MG TAB PO PRN ×2 (08:13→09:24)
[2018-05-27] MEDS ORDERED: LR 500 ML IV PRN (08:13)
[2018-05-27] MEDS ORDERED: ALBUTEROL 3 ML DEYVIAL IH PRN (08:13)
[2018-05-27] MEDS ORDERED: ACETAMINOPHEN 325 MG TAB PO PRN (09:24)
--- NOTE | 2018-05-27 09:24 | POSTOPPROG ---
Post Op Note Date of Operation: 05/27/18 Surgeon: Tony Kruse Sports Nutritionist: Maggie Anesthesiologist: pio Anesthesia: GET(General Endotracheal) Pre-op Diagnosis: Left ankle djd Post-op Diagnosis: same Indication: above Procedure: L ankle arthroscopic fusion Inf/Abcess present in the surg proc area at time of surgery?: No EBL: Minimal
[2018-05-27] MEDS ORDERED: FAMOTIDINE 20 MG TAB PO PRN (09:27)
[2018-05-27] MEDS ORDERED: NS 1,000 ML IV SCH (09:30)
[2018-05-27] MEDS ORDERED: ROPIVACAINE 0.2% 1,100 MG in PUMP SET 1 EA NB SCH (09:30)
--- NOTE | 2018-05-27 09:50 | GOP ---
DATE OF OPERATION: 05/27/2018 SURGEON: Tony Kruse MD ROOFER APPRENTICE: Amilcar Serrano SA ANESTHESIA: General with indwelling popliteal block and saphenous block. PREOPERATIVE DIAGNOSIS: Left ankle degenerative joint disease. POSTOPERATIVE DIAGNOSIS: Left ankle degenerative joint disease. PROCEDURE PERFORMED: 1. Left ankle arthroscopy with extensive debridement. 2. Left ankle fusion. FINDINGS: SPECIMENS: None. ESTIMATED BLOOD LOSS: 5 mL. INDICATIONS: This is a 72-year-old female with end-stage ankle DJD from prior trauma. I counseled h er on both the risks and benefits of ankle replacement versus ankle fusion. She elected for the ankl e fusion. I discussed doing this arthroscopically if possible, and she elected to proceed. We discu ssed risks of needing to open due to fusion, open nonunion, malunion, malposition, continued pain, ne rve injury, blood clots, heart attack, stroke, and she would like to proceed. Informed consent was o btained. All questions were answered. DESCRIPTION OF PROCEDURE: She was marked preoperatively. She was taken to the operative suite. Blo cks were administered per Anesthesia for anesthesia and postop pain control, a popliteal indwelling a nd saphenous block. The patient was sterilely prepped and draped in the normal fashion. Time-out wa s performed, verifying the site, side, and location, and there was agreement by everyone on the team. The scope was begun by insufflating the joint. I inflated the tourniquet to 250, established a media l portal and lateral working portal. I was able to get distraction and get into her joint. I used a bur to bur down her anterior osteophyte. Her joint was entirely arthritic and completely denuded of articular cartilage. I used an arthroscopic chisel, curette, bur, and K-wire to prepare the joint s urfaces for fusion, getting active bleeding subchondral bone. I left the bone that I had removed in the joint for bone graft. I removed osteophytes in order to obtain deformity correction, as well as took slightly more bone laterally to help deformity correction. I then was able to reduce the joint in appropriate amount of valgus, and neutral dorsiflexion and plantar flexion. The scope was removed . I used 2 percutaneous incisions medially and laterally. I dissected down to the bone and used a g uide. I placed K-wires across the joint. I used the drill and placed a lateral 7.0 Arthrex headless compression screw first to help bring this into more valgus and compression. I then placed a medial screw which was more anterior across this as well. I then did fluoro. The ankle did not move. She had good AP and lateral x-rays, showing good hardware placement and good compression across the join t. I then irrigated and closed the wounds with 2-0 Vicryl, 3-0 Monocryl and Dermabond. She was plac ed in a sterile dressing and splint, and taken to PACU in stable condition. COMPLICATIONS: None. DRAINS: None. CONDITION: Stable. /[id number]/MODL
[2018-05-27] MEDS ORDERED: LABETALOL HCL 5 MG/ML 20 ML MDV ONE ×2 (09:58)
[2018-05-27] MEDS ORDERED: LABETALOL HCL 5 MG/ML 20 ML MDV IVP ONE (10:15)
--- NOTE | 2018-05-27 11:49 | POSTANESTH ---
Post Anesthetic Evaluation Cardiovascular Status: Normal, Stable Respiratory Status: Normal, Stable Level of Consciousness/Mental Status: Can Participate in Eval Pain Control: Adequate, Prn Tx Ordered Nausea/Vomiting Control: Adequate, Prn Tx Ordered Complications Possibly Related to Anesthesia: None Noted
[2018-05-27] MEDS: ceFAZolin 2 GM/DEXTROSE 100 ML IV SCH ×2 (14:59→21:29)
[2018-05-27] MEDS: METOPROLOL TARTRATE 25 MG TAB PO SCH (21:28)
[2018-05-28] MEDS ORDERED: LEVOTHYROXINE 50 MCG TAB PO SCH (06:00)
[2018-05-28] MEDS ORDERED: ENOXAPARIN 40 MG/0.4 ML SYR SC SCH (09:00)
--- NOTE | 2018-05-28 09:05 | SOAPPROG ---
SOAP Progress Note Assessment/Plan: Assessment: L ankle fusion Plan: Home today non wt bearing left leg elevate ice 05/28/18 09:04 Subjective: no pain Objective: Vital Signs Temp Pulse Resp BP Pulse Ox 36.8 C 90 18 126/72 H 91 L 05/28/18 08:00 05/28/18 08:00 05/28/18 08:00 05/28/18 08:00 05/28/18 08:00 05/27/18 05/28/18 05/29/18 05:59 05:59 05:59 Intake Total 1700 Output Total 1860 100 Balance -160 -100 toes numb good cap refill ICD10 Worksheet Patient Problems: Problems Problem Status Onset Acute kidney injury Acute Dehydration, severe Acute Gastroenteritis and colitis, viral Acute
--- NOTE | 2018-05-28 09:22 | GDS ---
HOSPITALIZATION: She was admitted after a left ankle arthroscopic fusion. She did well. She had mi nimal pain, tolerating her diet, and was hemodynamically stable and met criteria for discharge. DISPOSITION: She is being sent home. CONSULTING PHYSICIANS: None. PROCEDURES: Left arthroscopic ankle fusion. PLAN: She is being discharged with pain medications as she was previously given for oxycodone, Ultra m. She is being discharged on aspirin 325 mg once a day for DVT prophylaxis. She was started on pre vious home medications. She will ice and elevate this and be nonweightbearing. She will call or com e back if she has chest pain, shortness of breath, drainage, fever, or otherwise concerned. She will follow up in 10 days. /[id number]/MODL
[2018-05-28] MEDS: METOPROLOL TARTRATE 25 MG TAB PO SCH (09:33)
[2018-05-28 11:35] VITALS: BP 131/62
--- NOTE | 2018-05-28 13:20 | ASDISCHSUM ---
Discharge Information Plan Status: Medically Cleared to Leave: Discharge Date:05/28/2018 12:36 PM CM D/C Disposition: ADT D/C Disposition:Home, Routine, Self-Care Projected Discharge Date:05/28/2018 12:36 PM Transportation at D/C: Discharge Delay Reason: Follow-Up Date:05/28/2018 12:36 PM Discharge Slot: Final Diagnosis: Placement Information Patient Contact Information Contact Name:YOSELIN Relationship: Address:[address] City:[place] Alternate Phone: State/Zip Code:[place] [address] Email: Financial Information Financial Class:Medicare Advantage Plans Primary Plan Desc:[facility] [employer] Primary Plan Number:[id number] Secondary Plan Desc: Secondary Plan Number: Assessment Information LACE LACE Length of stay for Answers: 2 days current admission Comorbidities - select Answers: Coronary Artery Disease all that apply Other Notes: HTN; HLD; Hypothyroid # of Emergency department Answers: 3-4 visits in the last 6 months Score: 8 Date Signed: 05/28/2018 01:20 PM Electronically Signed By:JORGE Go [facility] CM Progress Note CM Note CM Note Notes: Pt had ankle fusion, NWB. Pt medically stable for d/c home with supervision. Date Signed: 05/28/2018 01:19 PM Electronically Signed By:JORGE Go Intervention Information
== END 2018-05-28 12:36 | disposition home or self-care (01) ==
LOC: FSGY 05:34 → F3E 09:24 → F3N 10:50
PROVIDERS: ADMIT Orthopaedic Surgery; ATTEND Orthopaedic Surgery
PROC: 0SGG04Z Fusion of Left Ankle Joint with Internal Fixation Device, Open Approach (ICD-10-PCS; principal; 2018-05-27 07:15)
DX: M19.072 Primary osteoarthritis, left ankle and foot (principal); I10 Essential (primary) hypertension; I25.10 Atherosclerotic heart disease of native coronary artery without angina pectoris; I49.3 Ventricular premature depolarization; E78.5 Hyperlipidemia, unspecified
CPT/HCPCS: 27870; 97116; 97161; 97165; C1713; G0378; G8978; G8979; G8980; G8987; G8988; G8989; J0690; J1100; J1650; J2250; J2405; J2704; J2795; J3010